=== PATIENT | female | born 1985 | race Asian ===

== ENCOUNTER → 2018-04-27 | Outpatient (CLI) | payer OTHER ==
[2018-04-27 17:29] LABS: BASO % 0.5 % (0.0-1.0); EOS # 0.2 10^3/uL (0.0-0.50); EOS % 2.4 % (0.0-3.0); HEMATOCRIT 39.9 % (36.0-47.0); HEMOGLOBIN 13.8 g/dl (12.0-15.5); IMMATURE GRANULOCYTE % 0.2 % (0-3.0); LYMPH # 2.1 10^3/uL (1.5-4.5); LYMPH % 24.4 % (24.0-44.0); MEAN CORPUSCULAR HEMOGLOBIN 30.5 pg (27.0-33.0); MEAN CORPUSCULAR HGB CONC 34.6 g/dl (32.0-36.5); MEAN CORPUSCULAR VOLUME 88.1 fl (80.0-96.0); MONO # 0.6 10^3/uL (0.0-0.8); MONO % 6.5 % (0.0-5.0); NEUTROPHILS # 5.6 10^3/uL (1.8-7.7); PLATELET COUNT, AUTOMATED 279 10^3/uL (150-450); RED BLOOD COUNT 4.53 10^6/uL (4.00-5.40); RED CELL DISTRIBUTION WIDTH 12.2 % (11.5-14.5); WHITE BLOOD COUNT 8.5 10^3/uL (4.0-10.0)
[2018-04-30 11:37] LABS: HBsAg Prenatal NEGATIVE (NEGATIVE); HIV 1&2 SCREEN CENTAUR NEGATIVE (NEGATIVE); RUBELLA IgG QUALITATIVE IMMUNE (IMMUNE)
[2018-04-30 11:37] LABS: HEPATITIS C VIRUS ABY INDEX 0.1 INDEX (<0.8)
== END ==
LOC: M SMT 14:54
DX: Z36.89 Encounter for other specified antenatal screening (principal)
CPT/HCPCS: 86762

== ENCOUNTER → 2018-05-24 | Outpatient (REF) | payer OTHER, MEDICAID ==
[2018-05-24 20:30] LABS: CHLAMYDIA DNA AMPLIFICATION NEGATIVE (NEGATIVE); GC DNA AMPLIFICATION NEGATIVE (NEGATIVE)
== END ==
LOC: M LAB REF 17:02
PROVIDERS: ATTEND Advanced Practice Midwife
DX: Z34.82 Encounter for supervision of other normal pregnancy, second trimester (principal)

== ENCOUNTER → 2018-06-20 | Outpatient (CLI) | payer OTHER ==
--- NOTE | 2018-06-20 20:18 | REP ---
Clinical: Anatomical evaluation. Comparison: None . Findings: Examination demonstrates a single live intrauterine in breech presentation. motion is identified by technologist. Placenta is noted anterior and grade grade 1 without evidence for placenta previa or abruption. Amniotic fluid volume is normal. Cervix measures 3.4 cm in length and appears closed. No evidence for nuchal cord. Gestational age by current measurements 19 weeks 6 days with HAYLEY 11/08/2018 . FHR equals 160 beats per minute. BPD 4.7 cm 20 weeks 2 days HC 17.5 cm 20 weeks 0 days AC 14.9 cm 20 weeks 1 day FL 3.2 cm 19 weeks 6 days HL 3.2 cm 20 weeks 5 days HC/AC ratio 1.18 Estimated weight 325 grams ( 53rd percentile). Anatomical assessment demonstrates normal structures including cranium, choroid plexus, cavum, cerebellum/posterior fossa, facial features, lungs, four-chamber heart*/ventricular outflow tracts, diaphragm, stomach, cord insertion/three-vessel cord, kidneys/bladder, spine, and extremities. * four-chamber heart view demonstrates echogenic focus within the left cardiac ventricle likely prominent chordae tendineae. Impression: 1. Single live intrauterine in breech presentation demonstrating appropriate weight to growth. 2. Anatomical assessment is complete and essentially normal. Prominent chordae tendineae suggested. Electronically Signed by Cisco Adler MD 06/20/2018 08:10 P
== END ==
LOC: M SMT 14:25
PROVIDERS: ATTEND Advanced Practice Midwife
DX: Z34.82 Encounter for supervision of other normal pregnancy, second trimester (principal); Z3A.19 19 weeks gestation of pregnancy

== ENCOUNTER → 2018-06-26 | Outpatient (REF) | payer OTHER, MEDICAID | LOC: M LAB REF 17:04 | PROVIDERS: ATTEND Advanced Practice Midwife | DX: Z34.82 Encounter for supervision of other normal pregnancy, second trimester (principal) ==

== ENCOUNTER → 2018-08-22 | Outpatient (CLI) | payer OTHER ==
[2018-08-22 17:54] LABS: BASO % 0.4 % (0.0-1.0); EOS # 0.1 10^3/uL (0.0-0.50); EOS % 1.3 % (0.0-3.0); HEMATOCRIT 34.4 % (36.0-47.0); HEMOGLOBIN 11.4 g/dl (12.0-15.5); LYMPH # 1.4 10^3/uL (1.5-4.5); LYMPH % 13.2 % (24.0-44.0); MEAN CORPUSCULAR HEMOGLOBIN 29.9 pg (27.0-33.0); MEAN CORPUSCULAR HGB CONC 33.1 g/dl (32.0-36.5); MEAN CORPUSCULAR VOLUME 90.3 fl (80.0-96.0); MONO % 9.6 % (0.0-5.0); NEUTROPHILS # 7.7 10^3/uL (1.8-7.7); NEUTROPHILS % 74.6 % (36.0-66.0); PLATELET COUNT, AUTOMATED 274 10^3/uL (150-450); RED BLOOD COUNT 3.81 10^6/uL (4.00-5.40); WHITE BLOOD COUNT 10.3 10^3/uL (4.0-10.0)
== END ==
LOC: M SMT 13:56
PROVIDERS: ATTEND Advanced Practice Midwife
DX: Z34.82 Encounter for supervision of other normal pregnancy, second trimester (principal); Z3A.00 Weeks of gestation of pregnancy not specified

== ENCOUNTER → 2018-10-18 | Outpatient (REF) | payer OTHER | LOC: M LAB REF 16:46 | PROVIDERS: ATTEND Obstetrics & Gynecology | DX: Z34.83 Encounter for supervision of other normal pregnancy, third trimester (principal); Z3A.00 Weeks of gestation of pregnancy not specified ==

== ENCOUNTER 2018-11-08 16:52 | Inpatient (IN) | payer OTHER ==
[~2018-11-08] VITALS: Ht 162.6 cm; Wt 77.1 kg
[2018-11-08] VITALS (8 sets, daily range): BP systolic 112–144; BP diastolic 72–87
[2018-11-08] MEDS ORDERED: PENICILLIN G POTASSIUM IV 5 MU in D5W MINI-BAG PLUS 100 ML IV STA (17:41)
[2018-11-08 18:35] LABS: HEMATOCRIT 34.8 % (36.0-47.0); HEMOGLOBIN 11.5 g/dl (12.0-15.5); MEAN CORPUSCULAR HEMOGLOBIN 28.5 pg (27.0-33.0); MEAN CORPUSCULAR VOLUME 86.4 fl (80.0-96.0); PLATELET COUNT, AUTOMATED 265 10^3/uL (150-450); RED BLOOD COUNT 4.03 10^6/uL (4.00-5.40); WHITE BLOOD COUNT 11.3 10^3/uL (4.0-10.0)
[2018-11-08] MEDS ORDERED: OXYTOCIN 30 UNITS IN 0.9% NaCl 500ML IV BAG (J2590) As Ordered ONE (21:35)
[2018-11-08] MEDS ORDERED: OXYTOCIN DRIP 30 UNITS in APPROPRIATE DILUENT 1 EA IV SCH (21:45)
[2018-11-08] MEDS: PENICILLIN G POTASSIUM IV 2.5 MU in APPROPRIATE DILUENT 1 EA IV SCH (22:20)
--- NOTE | 2018-11-08 22:41 | HPE ---
DATE OF ADMISSION: 11/08/2018 REASON FOR ADMISSION: Spontaneous rupture of membranes. HISTORY OF PRESENT ILLNESS: This patient is a 33-year-old 1 who presents at 40 weeks 0 days estimated gestational age by the first-trimester ultrasound with complaints of leakage of fluid. She reports at approximately 3:00 p.m. started to leak fluid. Shortly after started having regular pattern of contractions. She denies any vaginal bleeding. She reports active movement. Her course has been unremarkable. She initiated care in the first trimester and has been appropriate throughout. PAST MEDICAL HISTORY: None. PAST SURGICAL HISTORY: None. OBSTETRICAL HISTORY: She is 1. MEDICATIONS: Include vitamins. ALLERGIES: She has no known drug allergies. SOCIAL HISTORY: She denies any alcohol, tobacco, or drug use during . She is currently , lives with her , and speaks minimal Czech. Her primary language is Mandarin. PHYSICAL EXAMINATION: VITAL SIGNS: Stable. She is afebrile. She has category 1 rate tracing with contractions on tocometer. GENERAL APPEARANCE: Well appearing. No acute distress. LUNGS: Clear to auscultation bilaterally. CARDIOVASCULAR: Heart regular rate and rhythm. ABDOMEN: Gravid, nontender. Estimated weight (EFW) 3600 grams. Cervical exam: She was 2 cm dilated, 50% effaced, -3 station. Grossly ruptured. LABORATORY DATA: labs: Blood type is B positive, antibody screen negative. Rubella is immune. RPR is nonreactive. Hepatitis surface antigen is negative. HIV is negative. Hepatitis C is nonreactive. Chlamydia and gonorrhea screens are negative. She had a normal 1-hour Glucola, and then she had a positive urine culture test for who group B streptococcus. ASSESSMENT: 1. This patient is a 33-year-old 1 at 40 weeks 0 days estimated gestational age by first-trimester ultrasound with spontaneous rupture of membranes. 2. Reassuring status. 3. GBS positive. PLAN: 1. Admit to labor delivery, complete blood count (CBC), rapid plasma reagin (RPR), type and screen. 2. Penicillin for GBS prophylaxis. 3. Patient is a good candidate for an epidural.
[2018-11-09] VITALS (50 sets, daily range): BP systolic 99–156; BP diastolic 55–95
[2018-11-09] MEDS: LR 1,000 ML IV SCH ×3 (00:29→10:51)
[2018-11-09] MEDS: PENICILLIN G POTASSIUM IV 2.5 MU in APPROPRIATE DILUENT 1 EA IV SCH ×3 (02:36→10:45)
[2018-11-09] MEDS ORDERED: FENTANYL 2MCG/ML ROPIVACAINE 0.2% IN 0.9% NACL 100ML IVBAG As Ordered ONE (05:19)
--- NOTE | 2018-11-09 06:48 | NUR ---
L&D Note: S: comfortable after epidural O: vss, AF cat 1 tracing gen: well appearing cx: 5-6/75%/-2 A/P: 33yo G1 PROM at 40wks -cont Pitocin augmentation -reassuring status -cont PCN for GBS -anticipate Miranda Rubio MD
[2018-11-09] MEDS ORDERED: FENTANYL/ROPIVACAINE/NACL BAG 100 ML EPIDURAL SCH (07:15)
[2018-11-09] MEDS ORDERED: EPIDURAL/PCA KEYS XX PRN (07:15)
[2018-11-09] MEDS ORDERED: ePHEDrine SULFATE 25 MG/5 ML(5MG/ML) SYRINGE IV PRN (07:15)
[2018-11-09] MEDS ORDERED: REFRIGERATOR IV KEYS XX PRN (07:15)
[2018-11-09] MEDS ORDERED: diphenhydrAMINE INJ 50MG/ML VIAL (J1200) IV PRN (07:15)
[2018-11-09] MEDS ORDERED: EPIDURAL COMMENT XX SCH (07:15)
[2018-11-09] MEDS ORDERED: NALOXONE INJ 0.4 MG/1 ML VIAL (J2310) IV PRN (07:15)
[2018-11-09] MEDS ORDERED: LACTATED RINGER'S 1000 ML IV PRN (07:15)
[2018-11-09] MEDS ORDERED: ONDANSETRON 4MG/2ML VIAL (J2405) IV PRN (07:15)
--- NOTE | 2018-11-09 10:41 | IPNPDOC ---
Text Note Date of Service The patient was seen on 11/09/18. NOTE Feeling increasing pressure with urge to push UC 2-3 minutes, strong Cat I tracing Moderate bloody show. SVE Rim/100/-3, reducible Enc to push if feels the urge VS,Fishbone, I+O VS, Fishbone, I+O Laboratory Tests 11/08/18 18:24 Red Blood Count 4.03, Mean Corpuscular Volume 86.4, Mean Corpuscular Hemoglobin 28.5, Mean Corpuscular Hemoglobin Concent 33.0, Red Cell Distribution Width 15.2 H Vital Signs Date Time Temp Pulse Resp B/P (MAP) Pulse Ox O2 Delivery O2 Flow Rate FiO2 11/09/18 09:09 99.7 107 18 108/58 (75) I&O- Last 24 Hours up to 6 AM 11/09/18 06:00 Intake Total 2050 ml Output Total 3250 ml Balance -1200 ml Deepika Aviles CNM Nov 09, 2018 10:41
[2018-11-09] MEDS ORDERED: ACETAMINOPHEN TAB 650MG DOSE (2X325MG) PO PRN (14:15)
[2018-11-09] MEDS ORDERED: ANUSOL HC CREAM 30GM TOP PRN (14:15)
[2018-11-09] MEDS ORDERED: MOM 30ML SUSPENSION UDC PO PRN (14:15)
[2018-11-09] MEDS ORDERED: DOCUSATE SODIUM 100 MG CAP PO PRN (14:15)
[2018-11-09] MEDS ORDERED: MEASLES,MUMPS,RUBELLA VACCINE INJ (MMR-II) (90707) SC SCH (14:15)
[2018-11-09] MEDS ORDERED: IBUPROFEN 600 MG TAB PO PRN (14:15)
[2018-11-09] MEDS ORDERED: DIBUCAINE 1% OINTMENT 30GM TOP PRN (14:15)
[2018-11-09] MEDS ORDERED: RHOGAM 300 MCG (1500 IU) INJ (J2790) IM SCH (14:15)
[2018-11-09] MEDS ORDERED: ACETAMINOPHEN 500 MG TAB PO PRN (14:15)
--- NOTE | 2018-11-09 14:26 | DNPDOC ---
[facility] Delivery Note Delivery Note DATE OF DELIVERY: November 09, 2917 PREDELIVERY DIAGNOSIS: 401/7 weeks' gestation and labor. POST DELIVERY DIAGNOSIS: Delivered. PROCEDURE: Spontaneous vaginal delivery. PROVIDER: Deepika Aviles CNM ANESTHESIA: Epidural. ESTIMATED BLOOD LOSS: 500 mL. FINDINGS: 8 pound 9 ounce, 3870gm male , Score 8/9, occult loop of cord at chest. DELIVERY SUMMARY: Patient is a 33-year-old 1 now para 1-0-0-1 who was admitted to labor and delivery for spontaneous rupture of membranes 11/08/18 @ 1500, clear fluid. She received pitocin augmentation of labor and utilized an epidural for labor coping. Adequate GBS prophylaxis was provided. FD 1053. Viable male child delivered AHSAN, restituted to LOP @ 1325. Spontaneous respirations, transitioned on maternal abdomen. Cord doubly clamped and cut by FOB under my direction once pulsations ceased. Apgars 8/9. Placenta morris, intact with 3 v cord @ 1339. Fundus firmed with massage but brisk bleeding continued. IV infiltrated. 10u IM pitocin given along with misoprostol 1000mcg OH while IV being restarted. Excellent control of bleeding. EBL 500ml. 1st degree perineal laceration repaired with 3-0 vicryl rapide. Infant wt 8#9, 3870gm. Sponge, sharp and instrument count correct. Parents are naming their son Jaleel. Deepika Aviles CNM Nov 09, 2018 14:26
[2018-11-09] MEDS: METHYLERGONOVINE MALEATE 0.2 MG TAB PO SCH ×3 (14:30→21:03)
[2018-11-09] MEDS ORDERED: miSOPROStol 200 MCG TAB (S0191) PR ONE (14:30)
[2018-11-09] MEDS ORDERED: OXYTOCIN INJ 10 UNITS/ML VIAL (J2590) IM ONE (14:30)
[2018-11-10] MEDS: METHYLERGONOVINE MALEATE 0.2 MG TAB PO SCH ×2 (03:30→08:01)
[2018-11-10 06:00] VITALS: BP 102/55
--- NOTE | 2018-11-10 07:25 | IPNPDOC ---
Text Note Date of Service The patient was seen on 11/10/18. NOTE PO #1 Feels well. Early attempts at nursing with assist. Adequate pain management. Voiding QS VSS Breasts soft. Demonstrated colostrum expression Fundus firm, down 2 Lochia rubra light without odor Perineum well approximated PP#1 Routine care. Anticipate D/C in am VS,Fishbone, I+O VS, Fishbone, I+O Vital Signs Date Time Temp Pulse Resp B/P (MAP) Pulse Ox O2 Delivery O2 Flow Rate FiO2 11/10/18 06:00 98.5 78 16 102/55 (71) I&O- Last 24 Hours up to 6 AM 11/10/18 06:00 Intake Total 2150 ml Output Total 2550 ml Balance -400 ml Deepika Aviles CNM Nov 10, 2018 07:25
[2018-11-10] MEDS: PRENATAL VITAMINS CHEWABLE TABLET PO SCH (08:01)
[2018-11-10] MEDS: IBUPROFEN 800 MG TAB PO PRN (08:19)
[2018-11-10] MEDS ORDERED: METHYLERGONOVINE MALEATE 0.2 MG TAB PO PRN (12:00)
[2018-11-10 18:00] VITALS: BP 100/54
[2018-11-11 06:31] VITALS: BP 110/63
[2018-11-11] MEDS: PRENATAL VITAMINS CHEWABLE TABLET PO SCH (08:17)
[2018-11-11] MEDS: IBUPROFEN 800 MG TAB PO PRN (08:20)
--- NOTE | 2018-11-11 09:52 | NUR ---
Day 2 Status post , uncomplicated Subjective Pain is well controlled. Lochia decreasing and minimal. Voiding spontaneously. Tolerating a regular diet. Ambulating without any assistance. Denies any subjective fever/chills/nausea/vomiting/headache/visual changes/shortness of breath/chest pain. Breast feeding. Objective Vitals: Normotensive, normal heart rate, afebrile, adequate urine output. Heart: regular, rate, and rhythm. no murmurs/gallops/rubs Lungs: clear to auscultation bilaterally, no wheezes/crackles/rales/ronchi Abd: soft, nontender, nondistended, uterine fundus is 2cm below umbilicus and firm Ext: no significant edema, nontender, negative Rah's bilaterally. Assessment/Plan: day 2. Recovering well. Hemodynamically stable, afebrile, good pain control. -Routine care -Discharge to home today. -Routine infectious, fever, pain, and bleeding precautions reviewed Dr. Severiano Barbosa, French.Praful., F.A.C.O.G.
[2018-11-11] MEDS ORDERED: IBUP80TA PO (09:54)
== END 2018-11-11 14:00 | disposition home or self-care (01) | DRG 560 ==
LOC: M LDO 16:52 → M LDI 17:35 → M OBS 11-09 16:25
PROVIDERS: ADMIT Obstetrics & Gynecology; ATTEND Advanced Practice Midwife
PROC: 10E0XZZ Delivery of Products of Conception, External Approach (ICD-10-PCS; principal; 2018-11-08)
PROC: 0HQ9XZZ Repair Perineum Skin, External Approach (ICD-10-PCS; 2018-11-08)
DX: O99.824 Streptococcus B carrier state complicating childbirth (principal); Z3A.40 40 weeks gestation of pregnancy; O69.82X0 Labor and delivery complicated by other cord entanglement, without compression, not applicable or unspecified; O70.0 First degree perineal laceration during delivery; Z37.0 Single live birth

== ENCOUNTER → 2019-01-17 | Outpatient (REF) | payer MEDICAID, OTHER, SELFPAY ==
[~2019-01-17] MED LIST: IBUP80TA PO
[2019-01-22 14:07] LABS: HPV HYBRID CAPTURE II Negative (Negative)
== END ==
LOC: M LAB REF 12:57
PROVIDERS: ATTEND Advanced Practice Midwife
DX: Z12.4 Encounter for screening for malignant neoplasm of cervix (principal)
CPT/HCPCS: 87624; G0123

== ENCOUNTER 2023-11-01 23:14 | Emergency (ER) | payer MEDICAID, SELFPAY ==
[~2023-11-01] VITALS: Ht 165.1 cm; Wt 63.6 kg
[2023-11-02 00:50] LABS: BASO # 0.1 10^3/uL (0.0-0.2); BASO % 0.9 % (0.0-1.0); EOS # 0.2 10^3/uL (0.0-0.5); EOS % 2.5 % (0.0-3.0); HEMOGLOBIN 13.7 g/dl (12.0-15.5); LYMPH # 1.8 10^3/uL (1.5-5.0); LYMPH % 26.2 % (24.0-44.0); MEAN CORPUSCULAR HEMOGLOBIN 30.9 pg (27.0-33.0); MEAN CORPUSCULAR HGB CONC 34.3 g/dl (32.0-36.5); MEAN CORPUSCULAR VOLUME 90.1 fl (80.0-96.0); MONO # 0.5 10^3/uL (0.0-0.8); MONO % 7.4 % (2.0-8.0); NEUTROPHILS # 4.4 10^3/uL (1.5-8.5); NEUTROPHILS % 62.9 % (36.0-66.0); PLATELET COUNT, AUTOMATED 250 10^3/uL (150-450); RED BLOOD COUNT 4.44 10^6/uL (4.00-5.40); WHITE BLOOD COUNT 6.9 10^3/uL (4.0-10.0)
[2023-11-02 01:17] LABS: LIPASE 63 U/L (12-53)
[2023-11-02 01:19] LABS: ALBUMIN 3.9 G/DL (3.2-5.2); ALKALINE PHOSPHATASE 56 U/L (46-116); ALT/SGPT 22 U/L (7.0-40); AST/SGOT 8 U/L (<34); BILIRUBIN,DIRECT < 0.1 MG/DL (<0.4); BILIRUBIN,TOTAL 0.3 MG/DL (0.3-1.2); BLOOD UREA NITROGEN 21 MG/DL (9-23); CALCIUM LEVEL 9.8 MG/DL (8.5-10.1); CARBON DIOXIDE LEVEL 29 MMOL/L (20-31); CHLORIDE LEVEL 107 MMOL/L (98-107); GLOMERULAR FILTRATION RATE > 60.0 (>60); GLUCOSE, FASTING 101 MG/DL (60-100); POTASSIUM SERUM 3.8 MMOL/L (3.5-5.1); SODIUM LEVEL 140 MMOL/L (136-145); TOTAL PROTEIN 7.1 G/DL (5.7-8.2)
[2023-11-02 01:32] LABS: HCG, SERUM QUALITATIVE NEGATIVE (NEGATIVE)
[2023-11-02 01:45] VITALS: BP 104/67; TEMP 98.1; O2SAT 100
== END 2023-11-02 02:02 | disposition left against medical advice (07) ==
LOC: M ED 23:14
DX: Z53.21 Procedure and treatment not carried out due to patient leaving prior to being seen by health care provider (principal)

== ENCOUNTER 2023-11-20 17:07 | Emergency (ER) | payer MEDICAID, OTHER ==
[~2023-11-20] VITALS: Ht 152.4 cm; Wt 62.9 kg
[2023-11-20 21:13] LABS: LIPASE 51 U/L (12-53)
[2023-11-20 21:15] LABS: ALBUMIN 3.7 G/DL (3.2-5.2); ALKALINE PHOSPHATASE 47 U/L (46-116); ALT/SGPT 17 U/L (7.0-40); AST/SGOT 12 U/L (<34); BILIRUBIN,DIRECT < 0.1 MG/DL (<0.4); BILIRUBIN,TOTAL 0.3 MG/DL (0.3-1.2); TOTAL PROTEIN 6.7 G/DL (5.7-8.2)
[2023-11-20 21:17] LABS: BASO % 0.5 % (0.0-1.0); EOS # 0.1 10^3/uL (0.0-0.5); EOS % 1.7 % (0.0-3.0); HEMATOCRIT 40.2 % (36.0-47.0); HEMOGLOBIN 13.7 g/dl (12.0-15.5); LYMPH # 1.6 10^3/uL (1.5-5.0); MEAN CORPUSCULAR HEMOGLOBIN 30.7 pg (27.0-33.0); MEAN CORPUSCULAR HGB CONC 34.1 g/dl (32.0-36.5); MEAN CORPUSCULAR VOLUME 90.1 fl (80.0-96.0); MONO # 0.5 10^3/uL (0.0-0.8); MONO % 12.9 % (2.0-8.0); NEUTROPHILS % 46.7 % (36.0-66.0); PLATELET COUNT, AUTOMATED 242 10^3/uL (150-450); RED BLOOD COUNT 4.46 10^6/uL (4.00-5.40); WHITE BLOOD COUNT 4.2 10^3/uL (4.0-10.0)
[2023-11-20 21:27] LABS: HCG, SERUM QUALITATIVE NEGATIVE (NEGATIVE)
[2023-11-20 21:32] LABS: INR 0.99; PARTIAL THROMBOPLASTIN TIME 24.1 SECONDS (24.8-34.2); PROTHROMBIN TIME 12.8 SECONDS (12.5-14.5)
[2023-11-20 22:04] LABS: POTASSIUM SERUM 3.5 MMOL/L (3.5-5.1)
[2023-11-20 23:31] VITALS: BP 107/65; TEMP 97.9; O2SAT 99
== END 2023-11-21 00:21 | disposition left against medical advice (07) ==
LOC: M ED 17:07
DX: R10.11 Right upper quadrant pain (principal); G95.89 Other specified diseases of spinal cord; Z53.9 Procedure and treatment not carried out, unspecified reason; Z91.041 Radiographic dye allergy status

== ENCOUNTER 2024-08-02 13:32 | Outpatient (RCR) | payer OTHER | END 2024-08-12 | LOC: MERGE 13:32 → M PT 13:32 | PROVIDERS: ATTEND Nurse Practitioner Family | DX: M54.50 Low back pain, unspecified (principal); R20.2 Paresthesia of skin; Z98.890 Other specified postprocedural states ==

== ENCOUNTER 2024-08-29 15:45 | Outpatient (RCR) | payer OTHER | END 2024-09-11 | LOC: M PT 15:45 | PROVIDERS: ATTEND Nurse Practitioner Family | DX: M54.50 Low back pain, unspecified (principal); R20.2 Paresthesia of skin; Z98.890 Other specified postprocedural states ==

== ENCOUNTER 2025-02-01 09:18 | Emergency (ER) | payer OTHER ==
[2025-02-01 09:43] VITALS: TEMP 96.8
[2025-02-01 09:54] LABS: BASO # 0.1 10^3/uL (0.0-0.2); BASO % 1.6 % (0.0-1.0); EOS # 0.1 10^3/uL (0.0-0.5); EOS % 2.3 % (0.0-3.0); LYMPH # 1.9 10^3/uL (1.5-5.0); LYMPH % 50.1 % (24.0-44.0); MONO # 0.3 10^3/uL (0.0-0.8); MONO % 7.5 % (2.0-8.0); NEUTROPHILS # 1.5 10^3/uL (1.5-8.5); NEUTROPHILS % 38.2 % (36.0-66.0); PLATELET COUNT, AUTOMATED 257 10^3/uL (150-450)
[2025-02-01 10:10] LABS: HCG, SERUM QUALITATIVE NEGATIVE (NEGATIVE)
[2025-02-01 10:13] LABS: ALT/SGPT 20 U/L (7.0-40); AST/SGOT 15 U/L (<34); CALCIUM LEVEL 9.5 MG/DL (8.5-10.1); CARBON DIOXIDE LEVEL 24 MMOL/L (20-31); CHLORIDE LEVEL 105 MMOL/L (98-107); CK-MB VALUE MASS 1.0 NG/ML (<3.6); CREATININE FOR GFR 0.68 MG/DL (0.55-1.30); GLOMERULAR FILTRATION RATE > 90.0 (>58); POTASSIUM SERUM 3.2 MMOL/L (3.5-5.1); SODIUM LEVEL 138 MMOL/L (136-145)
[2025-02-01 10:14] LABS: FREE T4 1.30 NG/DL (0.89-1.76)
[2025-02-01 10:18] LABS: CPK CREATINE PHOSPHOKINASE 99 U/L (34-145); MB/CK RELATIVE INDEX 1.01 (< OR =4)
[2025-02-01 10:57] LABS: INR 0.95
[2025-02-01 11:09] LABS: CK-MB VALUE MASS 1.1 NG/ML (<3.6)
[2025-02-01 11:12] LABS: CPK CREATINE PHOSPHOKINASE 101 U/L (34-145); MB/CK RELATIVE INDEX 1.08 (< OR =4)
[2025-02-01] MEDS ORDERED: HOME MED LIST COMPLETE! XX SCH (12:05)
[2025-02-01] MEDS: POTASSIUM CHLORIDE 10MEQ SR TABLET PO ONE (13:15)
[2025-02-01] MEDS ORDERED: POTASSIUM CHLORIDE 10MEQ SR TABLET PO ONE (14:40)
[2025-02-01 15:00] VITALS: O2SAT 99
[2025-02-01 15:02] VITALS: BP 99/63
[2025-02-01] MEDS ORDERED: HOLTER MONITOR XX (15:07)
== END 2025-02-01 15:19 | disposition home or self-care (01) ==
LOC: M ED 10:47
DX: R55 Syncope and collapse (principal); Z91.041 Radiographic dye allergy status

== ENCOUNTER → 2025-02-07 | Outpatient (CLI) | payer OTHER ==
[~2025-02-07] MED LIST changes: +HOLTER MONITOR XX
== END ==
LOC: M PLAIMG 15:58
PROVIDERS: ATTEND Nurse Practitioner Family
DX: M54.16 Radiculopathy, lumbar region (principal)

== ENCOUNTER 2025-02-15 01:51 | Observation (INO) | payer OTHER ==
[~2025-02-15] VITALS: Ht 162.6 cm; Wt 61.0 kg
[2025-02-15 02:19] LABS: BASO # 0.1 10^3/uL (0.0-0.2); BASO % 0.9 % (0.0-1.0); EOS # 0.1 10^3/uL (0.0-0.5); EOS % 2.3 % (0.0-3.0); LYMPH # 2.2 10^3/uL (1.5-5.0); LYMPH % 39.3 % (24.0-44.0); MONO # 0.4 10^3/uL (0.0-0.8); MONO % 7.0 % (2.0-8.0); NEUTROPHILS # 2.8 10^3/uL (1.5-8.5); NEUTROPHILS % 50.3 % (36.0-66.0); PLATELET COUNT, AUTOMATED 267 10^3/uL (150-450)
[2025-02-15 02:31] LABS: INR 0.92
[2025-02-15 03:06] LABS: ALT/SGPT 21 U/L (7.0-40); AST/SGOT 29 U/L (<34); CALCIUM LEVEL 9.2 MG/DL (8.5-10.1); CARBON DIOXIDE LEVEL 23 MMOL/L (20-31); CHLORIDE LEVEL 106 MMOL/L (98-107); CK-MB VALUE MASS 2.5 NG/ML (<3.6); CREATININE FOR GFR 0.60 MG/DL (0.55-1.30); GLOMERULAR FILTRATION RATE > 90.0 (>58); POTASSIUM SERUM 3.5 MMOL/L (3.5-5.1); SODIUM LEVEL 141 MMOL/L (136-145)
[2025-02-15 03:07] LABS: CPK CREATINE PHOSPHOKINASE 594 U/L (34-145); MB/CK RELATIVE INDEX 0.42 (< OR =4)
[2025-02-15] MEDS: PANTOPRAZOLE 40MG VIAL IV ONE (07:01)
[2025-02-15] MEDS: NS (Normal Saline) 0.9% 1,000 ML IV ONE ×3 (07:01→17:26)
[2025-02-15 07:26] LABS: KETONE, URINE AUTO RFX NEGATIVE (NEGATIVE); NITRITE, URINE AUTO RFX NEGATIVE (NEGATIVE); RBC, URINE AUTO RFX 1 /HPF (0-3); SQUAM EPITHELIAL CELL UR AURFX 2 /HPF (0-6); WBC, URINE AUTO RFX 2 /HPF (0-3)
[2025-02-15 07:27] LABS: LEUKOCYTE ESTERASE UR AUTO RFX TRACE (NEGATIVE)
[2025-02-15 07:49] LABS: HCG, SERUM QUALITATIVE NEGATIVE (NEGATIVE)
[2025-02-15 08:12] LABS: RSV AMPLIFICATION NEGATIVE (NEGATIVE)
[2025-02-15] MEDS: NS (Normal Saline) 0.9% 1,000 ML IV STA (09:46)
[2025-02-15] MEDS ORDERED: HOME MED LIST COMPLETE! XX SCH (11:05)
[2025-02-15] MEDS: ASPIRIN 81 MG CHEWABLE TABLET PO ONE (11:45)
[2025-02-15] MEDS ORDERED: ACETAMINOPHEN 325 MG TAB PO PRN (12:30)
[2025-02-15 13:52] VITALS: BP 108/71; TEMP 98.5; O2SAT 99
[2025-02-15] MEDS: NS (Normal Saline) 0.9% 1,000 ML IV SCH (15:25)
[2025-02-15 15:40] VITALS: BP 107/69; TEMP 98.4; O2SAT 98
[2025-02-15 17:12] VITALS: BP 92/54; TEMP 98.2; O2SAT 100
[2025-02-15 19:32] VITALS: BP 117/66; TEMP 98.9; O2SAT 100
[2025-02-15 23:30] VITALS: BP 95/64; TEMP 99.3; O2SAT 98
[2025-02-16] MEDS: RAMELTEON 8 MG TAB PO ONE (00:16)
[2025-02-16 03:29] VITALS: BP 93/54; TEMP 97.7; O2SAT 98
[2025-02-16 05:37] LABS: PLATELET COUNT, AUTOMATED 240 10^3/uL (150-450)
[2025-02-16 06:12] LABS: CALCIUM LEVEL 8.2 MG/DL (8.5-10.1); CARBON DIOXIDE LEVEL 23 MMOL/L (20-31); CHLORIDE LEVEL 110 MMOL/L (98-107); CREATININE FOR GFR 0.55 MG/DL (0.55-1.30); GLOMERULAR FILTRATION RATE > 90.0 (>58); POTASSIUM SERUM 3.7 MMOL/L (3.5-5.1); SODIUM LEVEL 143 MMOL/L (136-145)
[2025-02-16 07:27] VITALS: BP 90/54; TEMP 98.1; O2SAT 97
[2025-02-16] MEDS: ENOXAPARIN 40 MG/0.4 ML SYRINGE (J1650 PER 10MG) SC SCH (09:21)
[2025-02-16 13:06] LABS: CHOLESTEROL LEVEL 174 MG/DL (<200); CHOLESTEROL RISK RATIO 2.85 (<5); LDL CHOLESTEROL 97.9 MG/DL (<100); NON-HDL-C 113.1 MG/DL; TRIGLYCERIDES LEVEL 76 MG/DL (<150)
[2025-02-16 13:43] LABS: ESTIMATED AVERAGE GLUCOSE 97.0 MG/DL (60-110)
[2025-02-16 16:51] VITALS: BP 98/61; TEMP 97.9; O2SAT 97
== END 2025-02-16 17:29 | disposition home or self-care (01) ==
LOC: M ED 01:51 → M ED INP 01:52 → M PCU 13:55
PROVIDERS: ADMIT Internal Medicine; ATTEND Internal Medicine
DX: I95.9 Hypotension, unspecified (principal); R42 Dizziness and giddiness; R07.89 Other chest pain; Z91.041 Radiographic dye allergy status
CPT/HCPCS: 36415; 70450; 71045; 80048; 80053; 80061; 81001; 82550; 82553; 83036; 83690; 83880; 84443; 84484; 84703; 85025; 85027; 85379; 85610; 86140; 87086; 87486; 87581; 87633; 87637; 87798; 93005; 93041; 93306; 94760; 96361; 96372; 96374; 99285; J1650; J2470

== ENCOUNTER → 2025-02-20 | Outpatient (CLI) | payer OTHER | LOC: M RAD 13:17 | PROVIDERS: ATTEND Nurse Practitioner Family | DX: R42 Dizziness and giddiness (principal) ==

== ENCOUNTER → 2025-03-12 | Outpatient (REF) | payer OTHER ==
[2025-03-12 12:42] LABS: APPEARANCE, URINE CLEAR (CLEAR); BACTERIA, URINE AUTO 1+ (NEGATIVE); BILIRUBIN, URINE AUTO NEGATIVE (NEGATIVE); BLOOD, URINE BLOOD 3+ (NEGATIVE); GLUCOSE, URINE (UA) AUTO NEGATIVE (NEGATIVE); KETONE, URINE AUTO NEGATIVE (NEGATIVE); LEUKOCYTE ESTERASE, URINE AUTO 3+ (NEGATIVE); NITRITE, URINE AUTO NEGATIVE (NEGATIVE); PROTEIN, URINE AUTO NEGATIVE (NEGATIVE); RBC, URINE AUTO 0 /HPF (0-3); SPECIFIC GRAVITY URINE AUTO 1.001 (1.002-1.035); SQUAMOUS EPITHELIAL CELL UR AU 0 /HPF (0-6); UROBILINOGEN, URINE AUTO 0.2 mg/dL (0.0-2.0); WBC, URINE AUTO 5 /HPF (0-3)
== END ==
LOC: M LAB REF 12:15
PROVIDERS: ATTEND Physician Assistant
DX: N39.0 Urinary tract infection, site not specified (principal)

== ENCOUNTER → 2025-03-21 | Outpatient (CLI) | payer OTHER | LOC: M RAD 07:02 | PROVIDERS: ATTEND Nurse Practitioner Family | DX: R10.84 Generalized abdominal pain (principal); K76.89 Other specified diseases of liver ==

== ENCOUNTER → 2025-04-15 | Outpatient (CLI) | payer OTHER ==
[~2025-04-15] MED LIST changes: +E-Z-GAS II EFFERVESCENT PACKET (SODIUM BICARB./CITRIC ACID/SIMETHICONE) As Ordered ONE; +E-Z-HD 98% w/w 340 GM SUSP BTL As Ordered ONE; +E-Z-PAQUE 96% w/w SUSP 176 GM BTL As Ordered ONE
== END ==
LOC: M RAD 08:17
PROVIDERS: ATTEND Nurse Practitioner Family
DX: R10.13 Epigastric pain (principal); K21.9 Gastro-esophageal reflux disease without esophagitis

== ENCOUNTER → 2025-04-17 | Outpatient (CLI) | payer OTHER ==
[~2025-04-17] MED LIST changes: -E-Z-GAS II EFFERVESCENT PACKET (SODIUM BICARB./CITRIC ACID/SIMETHICONE) As Ordered ONE; -E-Z-HD 98% w/w 340 GM SUSP BTL As Ordered ONE; -E-Z-PAQUE 96% w/w SUSP 176 GM BTL As Ordered ONE; +OMEP40CA4 PO
[2025-04-17 13:54] LABS: BASO # 0.1 10^3/uL (0.0-0.2); BASO % 1.3 % (0.0-1.0); EOS # 0.2 10^3/uL (0.0-0.5); EOS % 3.3 % (0.0-3.0); LYMPH # 1.3 10^3/uL (1.5-5.0); LYMPH % 27.0 % (24.0-44.0); MONO # 0.4 10^3/uL (0.0-0.8); MONO % 7.7 % (2.0-8.0); NEUTROPHILS # 2.9 10^3/uL (1.5-8.5); NEUTROPHILS % 60.5 % (36.0-66.0); PLATELET COUNT, AUTOMATED 280 10^3/uL (150-450)
[2025-04-17 14:34] LABS: ALT/SGPT 17 U/L (7.0-40); AST/SGOT 14 U/L (<34); CALCIUM LEVEL 9.1 MG/DL (8.5-10.1); CARBON DIOXIDE LEVEL 27 MMOL/L (20-31); CHLORIDE LEVEL 105 MMOL/L (98-107); CHOLESTEROL LEVEL 199 MG/DL (<200); CHOLESTEROL RISK RATIO 2.81 (<5); CREATININE FOR GFR 0.62 MG/DL (0.55-1.30); GLOMERULAR FILTRATION RATE > 90.0 (>58); LDL CHOLESTEROL 107.1 MG/DL (<100); NON-HDL-C 128.3 MG/DL; POTASSIUM SERUM 3.9 MMOL/L (3.5-5.1); SODIUM LEVEL 141 MMOL/L (136-145); TRIGLYCERIDES LEVEL 106 MG/DL (<150)
[2025-04-17 14:35] LABS: FREE T4 1.18 NG/DL (0.89-1.76)
== END ==
LOC: M PLALAB 09:58
PROVIDERS: ATTEND Nurse Practitioner Family
DX: Z00.00 Encounter for general adult medical examination without abnormal findings (principal); E55.9 Vitamin D deficiency, unspecified; R53.83 Other fatigue; Z13.220 Encounter for screening for lipoid disorders

== ENCOUNTER → 2025-04-24 | Outpatient (CLI) | payer OTHER ==
[~2025-04-24] MED LIST changes: -OMEP40CA4 PO
== END ==
LOC: M CARPUL 15:39
PROVIDERS: ATTEND Physician Assistant
DX: R07.2 Precordial pain (principal)

== ENCOUNTER 2025-05-13 11:45 | Day surgery (SDC) | payer OTHER ==
[~2025-05-13] VITALS: Ht 162.6 cm; Wt 57.2 kg
[~2025-05-13 11:45] MED LIST changes: +LIDOCAINE 2% 100 MG/5 ML SDV (FOR ANES.) As Ordered ONE; +OMEP40CA4 PO
[2025-05-13 14:13] VITALS: TEMP 97.5
[2025-05-13 14:34] VITALS: BP 101/58; O2SAT 100
== END 2025-05-13 14:41 | disposition home or self-care (01) ==
LOC: M OPP 11:45
PROVIDERS: ATTEND Internal Medicine Gastroenterology
DX: K29.50 Unspecified chronic gastritis without bleeding (principal); R10.13 Epigastric pain; K21.9 Gastro-esophageal reflux disease without esophagitis; Z79.899 Other long term (current) drug therapy; Z91.041 Radiographic dye allergy status